=== PATIENT | male | born 1960 | race Caucasian/White ===

== ENCOUNTER 2020-09-24 08:19 | Outpatient (RCR) | payer SELFPAY | END 2020-09-24 23:59 | disposition home or self-care (01) | LOC: ANHAUDIO 08:19 | DX: Z46.1 Encounter for fitting and adjustment of hearing aid (principal) | CPT/HCPCS: 99199 ==

== ENCOUNTER 2021-06-01 15:00 | Outpatient (RCR) | payer SELFPAY | END 2021-06-01 23:59 | disposition home or self-care (01) | LOC: ANHAUDIO 15:00 | DX: Z46.1 Encounter for fitting and adjustment of hearing aid (principal) | CPT/HCPCS: 99199 ==

== ENCOUNTER 2021-08-16 08:31 | Outpatient (CLI) | payer OTHER, SELFPAY ==
--- NOTE | 2021-08-16 | EST_ITS ---
Patient Info Name: Edi Baldwin Age: 61 years : 1960 Gender: Male Ht: 65 in Wt: 185 lbs BSA: 1.99 m2 HR: 61 bpm BP: 126 / 90 mmHg Heart Rhythm: Sinus Rhythm Exam Date: 08/16/2021 10:16 AM Exam Location: [facility] Stress Patient Status: Outpatient Admit Date: 08/16/2021 Staff Ordering Physician: GloTreasure MD Attending Provider: GloTreasure MD Exercise Technologist: Gracie Kenney CT Exercise Physician: Yovanny You MD Exam Type: CA stress test treadmill Study Info Indications R07.9 - Chest pain, unspecified An exercise stress test was performed. Summary 1. Sinus bradycardia. 2. No abnormal ST/T wave changes with exercise. 3. None. 4. Clinically and electrocardiographically negative exercise stress test at 89% age predicted maximum heart rate. Protocol: [facility] ECG Details Stage: REST Duration (min): 1 min : 9 sec Speed (mph): 0.0 Grade (%): 0 HR (bpm): 59 SBP (mmHg): 126 DBP (mmHg): 90 METS: --- Stage: REST Duration (min): 16 min : 3 sec Speed (mph): 0.0 Grade (%): 0 HR (bpm): 66 SBP (mmHg): 126 DBP (mmHg): 90 METS: --- Stage: STAGE 1 Duration (min): 1 min : 0 sec Speed (mph): 1.7 Grade (%): 10 HR (bpm): 89 SBP (mmHg): 126 DBP (mmHg): 90 METS: --- Stage: STAGE 1 Duration (min): 2 min : 0 sec Speed (mph): 1.7 Grade (%): 10 HR (bpm): 95 SBP (mmHg): 126 DBP (mmHg): 90 METS: --- Stage: STAGE 1 Duration (min): 3 min : 0 sec Speed (mph): 1.7 Grade (%): 10 HR (bpm): 93 SBP (mmHg): 172 DBP (mmHg): 85 METS: --- Stage: STAGE 2 Duration (min): 1 min : 0 sec Speed (mph): 2.5 Grade (%): 12 HR (bpm): 102 SBP (mmHg): 172 DBP (mmHg): 85 METS: --- Stage: STAGE 2 Duration (min): 2 min : 0 sec Speed (mph): 2.5 Grade (%): 12 HR (bpm): 115 SBP (mmHg): 169 DBP (mmHg): 68 METS: --- Stage: STAGE 2 Duration (min): 3 min : 0 sec Speed (mph): 2.5 Grade (%): 12 HR (bpm): 113 SBP (mmHg): 169 DBP (mmHg): 68 METS: --- Stage: STAGE 3 Duration (min): 1 min : 0 sec Speed (mph): 3.4 Grade (%): 14 HR (bpm): 129 SBP (mmHg): 173 DBP (mmHg): 57 METS: --- Stage: STAGE 3 Duration (min): 2 min : 0 sec Speed (mph): 3.4 Grade (%): 14 HR (bpm): 136 SBP (mmHg): 173 DBP (mmHg): 57 METS: --- Stage: STAGE 3 Duration (min): 3 min : 0 sec Speed (mph): 3.4 Grade (%): 14 HR (bpm): 132 SBP (mmHg): 175 DBP (mmHg): 71 METS: --- Stage: STAGE 4 Duration (min): 0 min : 9 sec Speed (mph): 4.2 Grade (%): 16 HR (bpm): 135 SBP (mmHg): 175 DBP (mmHg): 71 METS: --- Stage: RECOVERY Duration (min): 0 min : 50 sec Speed (mph): 0.0 Grade (%): 0 HR (bpm): 101 SBP (mmHg):
--- NOTE | 2021-08-16 | ECHO_ITS ---
Patient Info Name: Edi Baldwin Age: 61 years : 1960 Gender: Male Ht: 65 in Wt: 185 lbs BSA: 1.99 m2 HR: 60 bpm BP: 143 / 91 mmHg Heart Rhythm: Sinus Rhythm Technical Quality: Fair Exam Date: 08/16/2021 9:19 AM Exam Location: [facility]monary Patient Status: Outpatient Admit Date: 08/16/2021 Staff Ordering Physician: Fara*Treasure Coulter MD [employer] Loans Officer: Mirian Oviedo RDCS Attending Provider: FaraTreasure MD Referring Physician: Fara HEARD; Exam Type: CA echo doppler color flow Study Info Indications Z82.49 - Family history of ischemic heart disease and other diseases of the circulatory system R07.89 - Other chest pain Complete two-dimensional, color flow and Doppler transthoracic echocardiogram is performed. Summary 1. Complete two-dimensional, color flow and Doppler transthoracic echocardiogram is performed. 2. Normal examination. 3. Trivial jet of tricuspid insufficiency is within the physiologic normal limits. Left Ventricle Left ventricular chamber dimension is normal. Left ventricular systolic function is normal, estimated at 65-70%. The left ventricular diastolic function is normal. Right Ventricle Right ventricular chamber dimension is normal. Left Atria Left atrial chamber dimension is normal. Right Atria Right atrial chamber dimension is normal. Aortic Valve The aortic valve is normal. Pulmonic Valve The pulmonic valve is normal. Mitral Valve The mitral valve has normal leaflets. Tricuspid Valve The tricuspid valve leaflets are normal. There is trace tricuspid valve regurgitation. Pericardium/Pleural The pericardium appears normal. Aorta The aortic root size at the sinus of Valsalva is normal. Left Ventricular Outflow Tract Name Value Normal LVOT 2D LVOT Diameter 2.0 cm LVOT Doppler LVOT Peak Gradient 4 mmHg LVOT Mean Gradient 2 mmHg LVOT VTI 21 cm LVOT VTI/AV VTI Ratio 0.8 LVOT Stroke Volume 66 ml LVOT CO 3.5 l/min LVOT CI 1.8 l/min/m2 Pulmonic Valve Name Value Normal RVOT Doppler RVOT Peak Gradient 1 mmHg PV Doppler PV Peak Gradient 4 mmHg Mitral Valve Name Value Normal MV Doppler MV Decel [place] 190 cm/s2 MV PHT 89 ms MV
--- NOTE | ~2021-08-16 | US_ITS ---
EXAMINATION: US scrotum doppler EXAM DATE: 08/16/2021 11:32 INDICATION: Left testicular mass. TECHNIQUE: Multiple grayscale and Doppler images of the testicles and scrotum were obtained bilateral ly. There is no prior study for comparison. FINDINGS: Right testicle measures 4.0 x 2.1 x 3.0 cm and is morphologically normal. Low resistance Doppler german w confirmed. Several epididymal cysts. There is no hydrocele or varicocele. Left testicle measures 4.1 x 2.2 x 2.9 cm and is morphologically normal. Low resistance Doppler flow confirmed. Several epididymal cysts. Serpiginous appearing left intrascrotal region adjacent to the testicle corresponding to the palpable abnormality, with echogenic material inside. This could be sma ll varicocele which has thrombosed-no color flow identified within. IMPRESSION: 1. Serpiginous left scrotal region corresponding to palpable abnormality, could be small thrombosed varicocele. 2. No testicular mass. Reviewed, dictated and finalized at location A. ON TEACHER IMPRESSION: 1. Serpiginous left scrotal region corresponding to palpable abnormality, coul d be small thrombosed varicocele. 2. No testicular mass.
== END 2021-08-16 08:32 | disposition home or self-care (01) ==
PROVIDERS: Visit Provider Internal Medicine
DX: R07.89 Other chest pain (principal); Z82.49 Family history of ischemic heart disease and other diseases of the circulatory system
CPT/HCPCS: 76870; 93017; 93306; 93976

== ENCOUNTER 2022-09-01 12:46 | Outpatient (CLI) | payer OTHER, SELFPAY ==
--- NOTE | ~2022-09-01 | DEXA_ITS ---
Bone Density Report Name: CLEOPATRA MANNING Age: 62 Sex: Male Ethnicity: White Date of : 1960 Indication: asthma or emphysema; Referring Provider: OSMAN ARREOLA Study: Bone densitometry was performed. Exam Date: September 01, 2022 Accession number: [id number] Bone Density: Region BMD T-score Z-score Classification AP Spine(L1-L4) 1.208 1.1 1.8 Normal Femoral Neck (Left) 0.609 -2.4 -1.3 Osteopenia Total Hip (Left) 0.742 -1.9 -1.4 Osteopenia Femoral Neck (Right) 0.672 -1.9 -0.9 Osteopenia Total Hip (Right) 0.851 -1.2 -0.7 Osteopenia Total Hip Mean 0.797 -1.6 -1.1 Osteopenia World Health Organization criteria for BMD impression classify patients as: Normal (T-score at or above -1.0), Osteopenia (T-score between -1.0 and -2.5), or Osteoporosis (T-score at or below -2.5). 10-year Fracture Risk(1): Major Osteoporotic Fracture 8.5% Hip Fracture 2.1% Reported Risk Factors: [place] (), Neck BMD=0.609, BMI=31.0 (1) FRAX(R) Version 3.08. Fracture probability calculated for an untreated patient. Fracture probability may be lower if the patient has received treatment. Clinical Information Provided by Patient: Has used the following medications: Vitamin D Has the following medical conditions: Asthma or Emphysema Patient maximum height was 65 Drinks caffeinated beverages Impression: The patient has low bone mass, based on the Left Femoral Neck T-score. The patient has an estimated ten-year risk of hip fracture of 2.1% and an estimated ten-year risk of major fracture of 8.5%, based on the WHO FRAX algorithm. Discussion: BONE DENSITY IS LOW AT ONE OR MORE SKELETAL SITES. This patient's lowest T-score is low at one or more skeletal sites. It meets the World Health Organization's (WHO) criteria for ?low bone mass? (T-score between -1.0 and -2.5). The patient's 10-year risk of fracture as calculated by FRAX is less than the threshold where pharmacological therapy is recommended by the National Osteoporosis Foundation (NOF). However, all treatment decisions require clinical judgment and consideration of individual patient factors, including patient preferences, comorbidities, previous drug use, risk factors not captured in the FRAX model (e.g., frailty, falls, vitamin D deficiency, increased bone turnover, interval significant decline in bone density) and possible under or overestimation of fracture risk by FRAX. The patient should follow a healthful lifestyle (good nutrition with adequate calcium and vitamin D, and appropriate weight-bearing exercise). Follow-Up: Consider repeating this study in 2 to 3 years to reassess this patient's status, or sooner if there is some new clinical indication. Reported by: [facility] on 09/01/2022 1:15:00 PM.
== END 2022-09-01 12:47 | disposition home or self-care (01) ==
PROVIDERS: Visit Provider Internal Medicine
DX: M85.89 Other specified disorders of bone density and structure, multiple sites (principal)
CPT/HCPCS: 77080

== ENCOUNTER 2023-05-18 14:29 | Outpatient (RCR) | payer MEDICARE, OTHER, SELFPAY | END 2023-05-18 23:59 | disposition home or self-care (01) | LOC: ANHAUDIO 14:29 | DX: Z46.1 Encounter for fitting and adjustment of hearing aid (principal) | CPT/HCPCS: V5014 ==

== ENCOUNTER 2023-09-26 11:25 | Emergency (ER) | payer MEDICARE, SELFPAY ==
--- NOTE | ~2023-09-26 | CT_ITS ---
EXAMINATION: CT lumbar spine wo con DATE: 09/26/2023 13:08 INDICATION: Back pain TECHNIQUE: Computed tomography (CT) of the lumbar spine was performed without intravenous contrast. A utomated exposure control and iterative reconstruction technique were employed. The dose-length produ ct was 661.83 mGy-cm. COMPARISON: None FINDINGS: There is 10 degree lumbar levocurvature. 10 degree thoracolumbar dextrocurvature. 3 mm retrolisthesis L5 on S1. Mild anterior wedging with 20% or less anterior vertebral body height loss at T12, L1 and L5 which appears chronic. No recent fractures. Severe left-sided predominant disc height loss at L1-L 2 and right-sided predominant disc height loss with sclerotic Modic type III endplate changes at L2-L 3. Mild disc height loss at L5-S1 and with vacuum phenomena at L4-L5. Vertebral soft tissues are unre markable. The following disc levels are specifically discussed: T11-T12: The disc does not extend beyond the endplate margin. Small right posterolateral T11 inferior endplate osteophyte at the level of the neural foramen. There is moderate right and severe left face t joint osteoarthritis. There is moderate right and mild left neural foraminal stenosis. There is min imal central canal stenosis. T12-L1: Disc is mildly bulging. There is mild right and severe left facet joint osteoarthritis. There is moderate bilateral neural foraminal stenosis. There is mild central canal stenosis. L1-L2: Disc is bulging with small left-sided predominant endplate osteophytes. There is moderate left and mild to moderate right facet joint osteoarthritis. There is moderate to severe bilateral neural foraminal stenosis. There is mild central canal stenosis. L2-L3: Posterior disc osteophyte complex. There is mild left and moderate to severe right facet joint osteoarthritis. There is moderate left and moderate to severe right neural foraminal stenosis. There is moderate central canal stenosis. L3-L4: Disc is bulging. There is mild hypertrophy of the ligamentum flavum. There is severe bilateral facet joint osteoarthritis. There is moderate bilateral neural foraminal stenosis. There is moderate to severe central canal stenosis. L4-L5: Disc is bulging. There is hypertrophy of the ligamentum flavum. There is severe bilateral face t joint osteoarthritis. There is moderate left and moderate to severe right neural foraminal stenosis . There is moderate to severe central canal stenosis. L5-S1: Disc is bulging. There is right and moderate to severe left facet joint osteoarthritis. There is moderate left and moderate to severe right neural foraminal stenosis. There is minimal central can al stenosis. IMPRESSION: 1. Moderate S-shaped curvature of the lumbar and lower thoracic spine with severe spondylosis. Reviewed, dictated and finalized at location A. NCIAL PLANNING ASSISTANT IMPRESSION: 1. Moderate S-shaped curvature of the lumbar and lower thoracic spine with reddy re spondylosis.
[2023-09-26 11:33] VITALS: BP 145/101; PULSE 72; RESP 16; TEMP 36.8; O2SAT 98
--- NOTE | 2023-09-26 11:37 | PC.NURSE ---
MSE started at this time in triage
--- NOTE | 2023-09-26 11:43 | ECG_ITS ---
Measurements Intervals [place] Rate: 73 P: 57 NC: 200 QRS: 21 QRSD: 92 T: 30 QT: 393 QTc: 433 Interpretive Statements SINUS RHYTHM COMPARED TO ECG 09/24/2018 19:19:08 NO SIGNIFICANT CHANGES Electronically Signed On 09-26-2023 15:46:26 FOOD ORDER EXPEDITER by Elissa Horner M.D.
--- NOTE | 2023-09-26 11:44 | ED.BACK ---
HPI - Back Pain/Injury General Chief Complaint: Back Pain/Injury <MARCELLO Jorge Last Filed: 09/26/23 19:22> Stated Complaint: lower back/hip pain <MARCELLO Jorge Last Filed: 09/26/23 19:22> Time Seen by Provider: 09/26/23 12:30 <MARCELLO Jorge Last Filed: 09/26/23 19:22> Focused HPI: This is a 63-year-old male that presents to the emergency department for left-sided flank pain. Ongoing over the last couple of days. Worsening over the last couple of hours. The pain is constant. Associated with nausea and vomiting. Denies chest pain, shortness of breath, dysuria, or hematuria. Patient recently had a left knee replacement at another facility about 1 week ago. GENERAL: Uncomfortable, well-nourished, actively vomiting HEAD: Normocephalic, atraumatic. CHEST: Clear to auscultation. No respiratory distress. HEART: Regular rate and rhythm. GASTROINTESTINAL: Soft, nondistended NEURO: Alert and oriented x3. Patient screened in triage and initial orders placed. Additional care and disposition to be based upon diagnostic testing and treatment. <MARCELLO Jorge Last Filed: 09/26/23 19:22> Source: patient <MARCELLO Jorge Last Filed: 09/26/23 19:22> Mode of arrival: wheelchair <MARCELLO Jorge Last Filed: 09/26/23 19:22> Limitations: no limitations <MARCELLO Jorge Last Filed: 09/26/23 19:22> Related Data Home Medications: Home Medications Medication Instructions Recorded Confirmed multivitamin 1 tablet PO DAILY 12/30/21 12/22/22 cholecalciferol (vitamin D3) 10 10 mcg PO DAILY 12/22/22 12/22/22 mcg (400 unit) capsule <MARCELLO Jorge Last Filed: 09/26/23 19:22> Allergies/Adverse Reactions: Allergies Allergy/AdvReac Type Severity Reaction Status Date / Time No Known Allergies Allergy Unknown Unverified 12/22/22 09:16 <Debbi Dumont PA-C - Last Filed: 09/26/23 19:22> Review of Systems Review of Systems: CONSTITUTIONAL: Denies fever, CARDIOVASCULAR: Denies chest pain RESPIRATORY: Denies dyspnea. GASTROINTESTINAL: Reports nausea, vomiting GENITOURINARY: Denies dysuria or hematuria. <Debbi Dumont PA-C - Last Filed: 09/26/23 19:22> All systems reviewed & are unremarkable except as noted in HPI and below <Debbi Dumont PA-C - Last Filed: 09/26/23 19:22> PMFSH Past Medical History Medical History: Medical History Arthritis Asthma Rhinitis SOB (shortness of breath) <Debbi Dumont PA-C - Last Filed: 09/26/23 19:22> Surgical History Surgical History: Surgical History History of arthroscopy of knee <Debbi Dumont PA-C - Last Filed: 09/26/23 19:22> Family History Family History: Family History Mother Family history of obesity Asthma Family history of diabetes mellitus in first degree relative Diabetes mellitus Father Hypertension Family history of condition Family history of diabetes mellitus in first degree relative Family history of coronary artery disease Diabetes mellitus Sibling Family history of diabetes mellitus in first degree relative Diabetes mellitus Grandparent Diabetes mellitus <Debbi Dumont PA-C - Last Filed: 09/26/23 19:22> Social History Social History: Social History Smoking status: Never smoker Second hand tobacco smoke exposure: No Alcohol intake: current Substance use: never Substance use type: does not use Living arrangements: with family Occupation/Education: retired Gender identity (if verbalized by the patient): Male <MARCELLO Jorge Last Filed: 09/26/23 19:22> Exam Narrative: GENERAL: Uncomfortable, well-nourished, vomiting HEAD: Normocephalic, atrauma
[2023-09-26 12:01] LABS: Basophils Absolute Auto 0.1 K/mm3 (0.0-0.1); Basophils Percent Auto 0.7 % (0.2-1.2); Eosinophils Absolute Auto 0.5 K/mm3 (0-0.3); Eosinophils Percent Auto 4.2 % (0-4.4); Hematocrit 39.5 % (42.0-52.0); Hemoglobin 13.1 g/dL (14.0-18.0); Immature Granulocyte Absolute 0.04 K/mm3 (0.00-0.031); Immature Granulocyte Percent A 0.4 % (0-0.5); Lymphocytes Absolute Auto 0.98 K/mm3 (0.9-3.2); Lymphocytes Percent Auto 8.9 % (18.3-44.2); Mean Corpuscular HGB Conc 33.2 g/dl (32-36); Mean Corpuscular Hemoglobin 28.9 pg (26-34); Mean Platelet Volume 9.8 fl (7.4-10.4); Monocytes Absolute Auto 0.9 K/mm3 (0.1-0.6); Monocytes Percent Auto 7.9 % (2.6-8.5); Neutrophils Absolute Auto 8.6 K/mm3 (1.3-6.7); Neutrophils Percent Auto 77.9 % (45.5-73.1); Platelet Count Result 281 k/mm3 (150-375); Red Blood Count 4.54 M/mm3 (4.6-6.20); Red Cell Distribution Width 12.5 % (11.5-14.5); White Blood Count 11.1 K/mm3 (4.5-10.0)
[2023-09-26 12:12] LABS: Prothrombin Time 13.1 Seconds (11.1-14.7)
[2023-09-26 12:13] LABS: Partial Thromboplastin Time 28.8 SECONDS (22.3-36.8)
[2023-09-26 12:14] LABS: Alanine Aminotransferase 31 U/L (6-50); Albumin Level 4.3 g/dL (3.5-5.1); Alkaline Phosphatase 52 U/L (38-126); Anion Gap 5 mmol/L (8-16); Aspartate Amino Transferase 31 U/L (17-59); Bilirubin,Total 0.9 mg/dL (0.2-1.3); Blood Urea Nitrogen 14 mg/dL (9-20); Calcium 9.4 mg/dL (8.4-10.2); Carbon Dioxide 27 mmol/L (22-30); Chloride 101 mmol/L (98-107); Estimated Glomerular Filt Rate > 60; Glucose 123 mg/dL (65-110); Potassium 4.2 mmol/L (3.4-5.0); Sodium 133 mmol/L (137-145)
[2023-09-26] MEDS: ONDANSETRON INJ 4 MG/2 ML VIAL IV PUSH (12:53)
[2023-09-26] MEDS: MORPHINE SULFATE (*CRX) 4 MG/ML INJ IV PUSH (12:53)
[2023-09-26 12:57] LABS: Appearance Urine Clear (Clear); Bilirubin Urine Negative (Negative); Blood Urine Negative (Negative); Color Urine Dark Yellow (Yellow); Glucose Urine UA Negative (Negative); Ketones Urine 2+ mg/dL (Negative); Leukocyte Esterase Ur Negative LEU/UL (Negative); Nitrate Urine Negative (Negative); Protein Urine Negative (Negative); Specific Grav Ur 1.026 (1.001-1.035); Urobilinogen Urine 0.2 mg/dL (<2.0)
[2023-09-26 13:00] LABS: Add Urine Microscopic? NO
--- NOTE | 2023-09-26 13:04 | PC.NURSE ---
Pt denies any urinary symptoms, pt unable to get comfortable, pain med given as ordered.
--- NOTE | 2023-09-26 14:50 | ED.BACK ---
HPI - Back Pain/Injury General Chief Complaint: Back Pain/Injury Stated Complaint: lower back/hip pain Time Seen by Provider: 09/26/23 12:30 Source: patient Limitations: no limitations History of Present Illness HPI Narrative: 63-year-old with a history of hypertension, hyperlipidemia status post total knee done on September 19 here with a complaint of right-sided back pain which started 3 days ago. He denies any trauma. No history of fever or chills. Patient states that if he moves in certain directions gets severe pain. MD elicited complaint: back pain Pertinent past history: arthritis Onset (ago): day(s) (3) Timing: constant Severity: moderate Location: lumbar spine Radiation: none Exacerbating factors: none Relieving factors: immobilization Associated symptoms: denies other symptoms Related Data Home Medications Medication Instructions Recorded Confirmed multivitamin 1 tablet PO DAILY 12/30/21 12/22/22 cholecalciferol (vitamin D3) 10 10 mcg PO DAILY 12/22/22 12/22/22 mcg (400 unit) capsule Allergies Allergy/AdvReac Type Severity Reaction Status Date / Time No Known Allergies Allergy Unknown Unverified 12/22/22 09:16 Review of Systems Review of Systems: All systems reviewed & are unremarkable except as noted in HPI and below Constitutional: Constitutional: Reports no additional constitutional complaints Eyes: Eyes: Reports no additional eye complaints ENT: Reports system reviewed and no additional complaints, except as documented Cardiovascular: Cardiovascular: Reports no additional cardiovascular complaints Respiratory: Respiratory: Reports no additional respiratory complaints Gastrointestinal: Gastrointestinal: Reports no additional gastrointestinal complaints Musculoskeletal: Musculoskeletal: Reports as per HPI Neurologic: Reports system reviewed and no additional complaints, except as documented [facility] Past Medical History Medical History Arthritis Asthma Rhinitis SOB (shortness of breath) Surgical History Surgical History History of arthroscopy of knee Family History Family History Mother Family history of obesity Asthma Family history of diabetes mellitus in first degree relative Diabetes mellitus Father Hypertension Family history of condition Family history of diabetes mellitus in first degree relative Family history of coronary artery disease Diabetes mellitus Sibling Family history of diabetes mellitus in first degree relative Diabetes mellitus Grandparent Diabetes mellitus Social History Social History Smoking status: Never smoker Second hand tobacco smoke exposure: No Alcohol intake: current Substance use: never Substance use type: does not use Living arrangements: with family Occupation/Education: retired Gender identity (if verbalized by the patient): Male Exam Narrative: GENERAL: Well-appearing, well-nourished, and in no acute distress. HEAD: Normocephalic, atraumatic. EYES: PERRLA and EOMI. ENT: Nares clear, no rhinorrhea or epistaxis. Mucous membranes moist. NECK: Supple. CHEST: Clear to auscultation. No respiratory distress. HEART: Regular rate and rhythm. No murmur heard. Normal peripheral pulses. ABDOMEN: Soft, nontender, nondistended, normal active bowel sounds. Back No rah ,tender in the flank area EXTREMITIES: Normal range of motion. No edema. right knee surgical dressing SKIN: Warm, dry, no rash. NEURO: No focal deficits. Alert and oriented x3. PSYCH: Normal mood and affect. Course Course Emergency Course: Patient comfortably resting on the bed. His pain has much improved after IV morphine and Zofran. I did discuss all lab work, CT findings with the patient and his Discussed with Dr. Wilkes
[2023-09-26 15:28] VITALS: BP 112/69; PULSE 72; RESP 16; TEMP 36.7; O2SAT 95
== END 2023-09-26 15:31 | disposition home or self-care (01) ==
PROVIDERS: Physician Assistant; Emergency Provider Family Medicine
DX: M54.50 Low back pain, unspecified (principal); Z96.652 Presence of left artificial knee joint
CPT/HCPCS: 36415; 72131; 80053; 81003; 83605; 85025; 85610; 85730; 93005; 96374; 96375; 99284; J2270; J2405

== ENCOUNTER 2023-10-27 09:00 | Outpatient (RCR) | payer MEDICARE, SELFPAY ==
--- NOTE | 2023-09-26 10:03 | OPREHPOC ---
Outpatient Therapy Plan of Care This is a Multidisciplinary Plan of Care that may contain components documented by all disciplines (PT, OT, and ST.) PT Problem 1 PT Problem #1 Knowledge Deficit PT Goal 1 Goal 1* indep with HEP 2* correct use/gait pattern with assistive device PT Problem 2 PT Problem #2 Pain PT Goal 1 Goal 1* decrease pain rating to 3/10 at worst 2* self assessment LE functional score of 50% limitation in activity PT Problem 3 PT Problem #3 Impaired Range of Motion PT Goal 1 Goal increase L knee active ROM to improve transfer and ability on stairs sittin* extension 0' 2* flexion 110' PT Problem 4 PT Problem #4 Impaired Strength PT Goal 1 Goal increase strength of L LE, to improve mobility, gait and transfer skills 1* supine/sit without use of R LE to move L LE 2* sit/stand without use of UE's from 18 seat x 5 reps 3* pt perform 20 reps of mat strengthening exercises PT Problem 5 PT Problem #5 Impaired Functional Mobil PT Goal 1 Goal 1* pt ambulate with cane and good gait pattern 2* pt up/down 12 steps with one hand railing, modified indep 3* pt report walking in community 4* pt report going to his basement without any problems on the stairs
--- NOTE | 2023-09-26 10:03 | PTOPEVAL1 ---
Assessment and note entered by Alanis Santos, PT Evaluation Information Assessment Status Evaluation Diagnosis s/p L TKR Onset 09-19-23 Subjective Information since surgery, resting at home, doing exercises-- QS, glut set, hip abduction, TKE, heel slides- 15 reps; using ice and TENS unit for pain and on quad stim; using walker Activity: 2 entry steps into home with railing; have basement- do not have to go down, but has work shop down there; retired; prior to surgery- active, yard work, no limitations in activity level. home with - she is supportive Reported Pain Level Pain Score Self Report Additional Pain Score Comments pain range in past few days: 3-5/10, tight, stiff using elevation and ice at home, stim Assessment PT Clinical Summary Ronn is s/p L TKR. He has had his R knee replaced also, so does have good knowledge of what to expect with therapy. Toña present and supportive to pt. Prior to surgery, he was active and did not have any limitations in activity. With the evaluation: he has decreased ROM of knee (-5') to 75' passive, with decreased quad recruitment--cannot perform SLR and uses R UE to move L LE on/off mat; use of walker for 2 minute walking test distance of 220'; he is motivated and is supportive. Skilled PT services are indicated for modalities to decrease pain and edema over L knee and stim to facilitate quad; therapeutic exercises to increase L knee ROM and strength; gait and balance retraining, with education for HEP progression. Plan of Care Interventions Electrical Stimulation,Gait Training,Hot Pack/Cold Pack,Intermittent Compression,Manual Therapy, Neuro Re-education,Patient/Caregiver Education, Therapeutic Activities,Therapeutic Exercise,Self- Care/Home Management,Other Other Interventions taping PT Services Indicated Yes Treatment Frequency and 2x/wk for 10 total visits Duration
--- NOTE | 2023-10-27 09:55 | PTOPDC ---
Assessment and note entered by Gonzalo Spears, PT, DPT Evaluation Information Assessment Status Discharge Diagnosis s/p L TKR Onset 09-19-23 Subjective Information Pt states overall he is doing great. He can do whatever he wants to do. He states his knee will get a little sore and swollen after activity but this goes away with rest and is very manageable. Reported Pain Level Pain Score 1: Self Report Assessment PT Clinical Summary Edi completed 10 visits of skilled therapy to treat the deficits related to a L TKA on 09/19/23. Today he demonstrates equal hip and knee strength yudi, active L knee ROM from 0-128 deg. He ambulates without an AD and with minimal deviations. He has met all of his therapy goals and no longer requires skilled services. He will be discharged at this time.
== END 2023-10-27 11:36 | disposition home or self-care (01) ==
LOC: ANHGOSHPT 09:00
PROVIDERS: Visit Provider Orthopaedic Surgery
DX: Z47.1 Aftercare following joint replacement surgery (principal); Z96.652 Presence of left artificial knee joint
CPT/HCPCS: 97016; 97110; 97112; 97161; 97530

== ENCOUNTER 2024-02-16 10:50 | Outpatient (CLI) | payer MEDICARE, OTHER, SELFPAY | END 2024-02-16 10:51 | disposition home or self-care (01) | LOC: ANHAUDIO 10:50 | PROVIDERS: Visit Provider Internal Medicine | DX: H90.3 Sensorineural hearing loss, bilateral (principal) | CPT/HCPCS: 92557; 92567; V5261 ==

== ENCOUNTER 2024-03-28 08:30 | Outpatient (RCR) | payer MEDICARE, OTHER, SELFPAY | END 2024-03-28 23:59 | disposition home or self-care (01) | LOC: ANHAUDIO 08:30 | PROVIDERS: Visit Provider Internal Medicine | DX: Z46.1 Encounter for fitting and adjustment of hearing aid (principal) | CPT/HCPCS: 99199; V5261 ==

== ENCOUNTER 2025-06-17 01:00 | Day surgery (SDC) | payer MEDICARE, OTHER, SELFPAY ==
[2025-06-06 09:43] VITALS: BMI 29.1
--- OUTSIDE RECORDS SUMMARY | 2025-06-17 01:02 | XMS_ITS | Clinical Summary ---
Author Organization [facility] Address [address] [place] [address] Care Team Providers Care Solar Sales Rep Name Role Phone Treasure Cody MD Primary Care Provider [phone] Michaela Burt Unavailable [phone] Allergies Active Allergy Reactions Criticality Noted Date Comments Hydrocodone Nausea & Vomiting Low 10/02/2023 Medications atorvastatin (LIPITOR) 10 mg tablet Take 1 tablet (10 mg total) by mouth daily 4 8 Active amLODIPine (NORVASC) 5 mg tablet Take 1 tablet (5 mg total) by mouth daily Active cetirizine (ZyrTEC) 10 mg tablet Take 1 tablet (10 mg total) by mouth daily as needed for allergies Active fluticasone propion-salmeter oL (ADVAIR DISKUS) 100-50 mcg/dose diskus inhaler Inhale 1 puff daily Rinse mouth with water after use. Do not swallow. Active diphenhydrAMINE (BENADRYL) 50 mg capsule Take 1 capsule (50 mg total) by mouth nightly as needed for sleep Active therapeutic multivitamin (THERA) tabletIndication s:Vitamin Deficiency Prevention Take 1 tablet by mouth daily Active cholecalciferol (VITAMIN D-3) 2000 unit tablet Take 1 tablet (2,000 Units total) by mouth daily Active calcium carbonate-vitami n D3 1,250 mg (500 mg elemental)-600 unit tablet Take 2 tablets by mouth daily Active albuterol HFA (PROVENTIL HFA,VENTOLIN HFA,PROAIR HFA) 90 mcg/actuation inhaler Inhale 2 puffs every 6 (six) hours as needed for wheezing Active ascorbic acid (VITAMIN C) 500 mg tablet,chewable Take 1 tablet/chew tab (500 mg total) by mouth 2 (two) times a day 60 tablet/chew tab 4 Active aspirin 81 mg enteric coated tabletIndication s:prevention of thrombosis Take 1 tablet (81 mg total) by mouth 2 (two) times a day for 14 days 28 tablet 4 Active cholecalciferol (VITAMIN D-3) 2000 unit capsule Take 1 capsule (2,000 Units total) by mouth daily 30 capsule 4 Active ondansetron (ZOFRAN) 4 mg tabletIndication s:Prevention of Post-Operative Nausea and Vomiting Take 1 tablet (4 mg total) by mouth every 6 (six) hours as needed for nausea or vomiting 30 tablet 1 4 Active Additional Information Patient not taking.Reported on 11/14/2023 senna-docusate (PERICOLACE) 8.6-50 mg 1-2 times daily as needed for constipation 60 tablet 1 4 Active Additional Information Patient not taking.Reported on 11/14/2023 cyclobenzaprine (FLEXERIL) 5 mg tablet Take 1 tablet (5 mg total) by mouth daily as needed for muscle spasms 30 tablet 2 4 Active Active Problems Problem Noted Date Diagnosed Date Arthritis of knee 09/19/2023 Primary osteoarthritis of left knee 09/06/2023 Primary osteoarthritis of right knee 05/29/2018 Overview (05/29/2018): Added automatically from request for surgery [id number] Arthralgia of hip 12/02/2014 Resolved Problems Problem Noted Date Diagnosed Date Resolved Date Myalgia, other site 11/30/2023 11/30/19 24 Encounters Date Type Department Care Team Description 03/19/2025 7:49 AM CDT - 03/19/2025 11:59 PM CDT Hospital Encounter [facility] [address] [place] [address] A, [address] [address] Teetee Estes NP Myalgia (Primary Dx) Discharge Disposition: Discharge to home or self care from Last 3 Months Surgical History Surgery Date Site/Laterality Comments KNEE ARTHROSCOPY JOINT REPLACEMENT Right knee VASECTOMY Medical History Medical History Date Comments Hypercholesteremia Asthma Hypertension PONV (postoperative nausea and vomiting) Sleep apnea Myalgia, other site 11/30/2023 Family History Medical History Relation Name Comments Arthritis Other Diabetes Other Hypertension Other Relation Name Status Comments Other Social History Tobacco Use Types Packs/Day Years Used Date Smoking Tobacco: Never Smokeless Tobacco: Never Tobacco Cessation:Counseling Given: Not Answered Alcohol Use Standard Drinks/Week Comments Yes 0 (1 standard drink = 0.6 oz pur e alcohol) AUDIT-C Answer Date Recorded Q1: How often do you have a drink containing alc ohol? 2-3 times a week 09/08/2023 Q2: How many drinks containi ng alcohol do you have on a typical day when you are drinking? 1 or 2 09/08/2023 Q3: How often do you have si x or more drinks on one occasion? Never 09/08/2023 PHQ-2 Answer Date Recorded PHQ-2 Total Score (If total score is 3 or more points, staff should administer the PHQ-9) 2 10/18/2023 PHQ-9 Answer Date Recorded PHQ-9 Total Score 9 10/18/2023 Personal Safety Answer Date Recorded Have you ever been in or are you currently in a harmful physical or emotional relationship or is someone making you feel afraid or unsafe? 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 Gender Identity Not on file Sexual Orientation Not on file Last Filed Vital Signs Vital Sign Reading Time Taken Comments Blood Pressure 135/77 03/19/2025 8:00 AM CDT Pulse 65 03/19/2025 8:00 AM CDT Temperature 36.6 C (97.8 F) 02/26/2025 7:19 AM CDT Respiratory Rate 16 03/19/2025 8:00 AM CDT Oxygen Saturation 98% 03/19/2025 8:00 AM CDT Inhaled Oxygen Concentration - - Weight 86.2 kg (190 lb) 11/14/2023 1:35 PM CDT Height 163.8 cm (5' 4.5) 11/14/2023 1:35 PM CDT Body Mass Index 32.11 11/14/2023 1:35 PM CDT Plan of Treatment Health Maintenance Due Date Last Done Comments Colon Cancer Screening-Colonoscopy 1960 Hepatitis C Screening 1960 Prostate Cancer Screening-PSA 1960 DTaP/Tdap/Td Vaccine (1 - Tdap) 1969 Hepatitis B Screening 1976 Pneumococcal vaccine 65+ (1 of 2 - PCV) 1977 Zoster Vaccine (1 of 2) 2008 Well Visit 65+ 2023 Fall Risk Assessment 09/06/2024 09/06/2023 Depression Screening 10/17/2024 10/18/2023, 10/18/19 24 Influenza Vaccine (#1) 2025 Medical Devices Implanted Type Area Laundry Manager Device Identifier Shelf Expiration Date Model / Serial / Lot Surgical Simplex P Radiopaque Bone Cement [id number] Implanted:Qty: 1 on 06/14/2018 by Puneet Wilkes MD at [facility] Right: Knee [employer] [id number] 08/06/2018 [id number] / / [id number] [employer] [id number] Attune Cementless Rotate Platform Knee 7 Baseplate Tibial - [id number] Implanted:Qty: 1 on 06/14/2018 by Puneet Wilkes MD at [facility] Right: Knee [employer] 02/03/2027 [id number] / / [id number] [employer] [id number] Attune Cruciate Retain Cementless Knee Right 7 Component Femoral - [id number] Implanted:Qty: 1 on 06/14/2018 by Puneet Wilkes MD at [facility] Right: Knee [employer] 01/04/2027 [id number] / / [id number] [employer] [id number] Attune 5mm Cruciate Retaining Rotate Platform Knee 7 Insert - [id number] Implanted:Qty: 1 on 06/14/2018 by Puneet Wilkes MD at [facility] Right: Knee [employer] 12/04/2022 [id number] / / [id number] [employer] [id number] Attune 38mm Cemented Medialize Knee Dome Patellar Aox Sterile - [id number] Implanted:Qty: 1 on 06/14/2018 by Puneet Wilkes MD at [facility] Right: Knee [employer] 12/04/2022 [id number] / / [id number] [employer] Attune Cruciate Retain Cementless Knee Left 7 Component Femoral [id number] - [id number] Implanted:Qty: 1 on 09/19/2023 by Puneet Wilkes MD at [facility] Left: Knee [employer] 04/06/2033 [id number] / / [id number] [employer] Attune Fb Tib Base Sz 7 Por [id number] - [id number] Implanted:Qty: 1 on 09/19/2023 by Puneet Wilkes MD at [facility] Left: Knee [employer] 08/06/2033 [id number] / / [id number] [employer] Insert Tibial Knee Fixed Lm Posterior Stabilized Attune 6mm Size 7 Polyethylene [id number] - [id number] Implanted:Qty: 1 on 09/19/2023 by Puneet Wilkes MD at [facility] Left: Knee [employer] 04/06/2031 [id number] / / [id number] [facility] MEDIC[facility] Advance Directives For more information, please contact: [phone] * Full Code (Latest Code Status on File) Date Activated Date Inactivated Comments 09/19/2023 10:37 AM 09/19/2023 6:59 PM * Full Code Date Activated Date Inactivated Comments 06/14/2018 3:55 PM 06/16/2018 3:42 AM Care Teams Solar Sales Rep Relationship Specialty Start Date End Date Treasure Cody MD PCP - General Internal Medicine 07/05/23 Michaela Burt PA [address] [place] [address] [place] [address] [place] [id number] Physician Heavy Equipment Operator Orthopedic Surgery 09/19/23
[2025-06-17 13:24] VITALS: BP 116/82; PULSE 83; RESP 20; O2SAT 93
[2025-06-17] MEDS: LACTATED RINGERS 1,000 ML 150 ML IV CONT (13:27)
--- NOTE | 2025-06-17 13:59 | P.PNAN_ITS ---
Anes - Initial Pre Proc Eval Procedure: Operation Date: 06/17/25 14:00 Proposed Procedures p Screening Colonoscopy - Farhat Cuba DO Date/Time: 06/17/25 13:59 Surgeon: Farhat Cuba DO Pre Op Diagnosis: Neoplasm screening Patient Data Age: 65 Gender: M Height: 1.73 m Weight: 89.9 kg Allergies Allergy/AdvReac Type Severity Reaction Status Date / Time hydrocodone AdvReac Intermediate Back Pain Verified 06/06/25 09:41 Home Medications ?Medication ?Instructions ?Recorded ?Confirmed ?Type atorvastatin 10 mg tablet 10 mg PO DAILY #90 tabs 04/04/2606/17/25 Rx amlodipine 5 mg tablet 5 mg PO DAILY #90 tabs 05/1306/17/25 Rx albuterol sulfate 90 mcg/actuation 1 - 2 puff inhalati on Q4-6H PRN 12/30/21 06/17/25 Rx aerosol inhaler (Ventolin HFA) shortness of breath or wheezing #8.5 grams multivitamin 1 tablet PO DAILY 12/30/21 1 08/17/24 History cholecalciferol (vitamin D3) 10 10 mcg PO DAILY 06/17/25 History mcg (400 unit) capsule acetaminophen 500 mg tablet 500 mg PO Q6H PRN fever or pain 02/25/25 06/06/25 History calcium 500 mg (as 1 tablet PO DAILY 02/25/25 1 08/17/24 History carbonate)-vitamin D3 10 mcg (400 unit) tablet (Calcium 500 With D) fluticasone 100 mcg-salmeterol 50 See Rx Instructions .Route 04/14/25 06/17/25 Rx mcg/dose blistr powdr for .COMPLEX #60 ea inhalation (Wixela Inhub) Patient hx anesthesia problems: none Family hx anesthesia problems: none Results Review: All pre-operative results and documents have been reviewed as part of the pre- operative evaluation. [facility] Past Medical History Medical History (Updated 06/17/25 @ 14:00 by Yohan Hamilton DO) KAMI (obstructive sleep apnea) Hypertension Hyperlipemia Arthritis SOB (shortness of breath) Rhinitis Asthma Surgical History Surgical History (Updated 02/25/25 @ 08:08 by Charley Damon) History of left knee replacement History of arthroscopy of knee Family History Family History (Updated 02/25/25 @ 08:09 by Charley Damon) Mother Family history of diabetes mellitus in first degree relative Diabetes mellitus Father Hypertension Diabetes mellitus Sibling Diabetes mellitus Hypertension Cerebrovascular accident Grandparent Diabetes mellitus Social History Social History (Updated 02/25/25 @ 09:03 by Charley Damon) Smoking status: Never smoker Second hand tobacco smoke exposure: No Alcohol intake: current Drinks per week: 4 Alcohol use details: beer socially- rare Substance use: never Substance use type: does not use Living arrangements: with family Occupation/Education: retired Gender identity (if verbalized by the patient): Male Spiritual care concerns: No Anes - Eval Final PreProcedure Day of Procedure 06/17/25 13:59 Patient weight: obese Heart: regular rate and rhythm Lungs: clear to auscultation Airway: Mallampati scale class II Neurological: alert and oriented Last oral intake: >/= 8 hours ASA classification: III Emergent: no Anesthetic plan: proceed Anesthesia type and monitoring: general GIVS and standard monitoring Results Review: All pre-operative results and documents have been reviewed as part of the pre- operative evaluation. Informed Consent: The patient's anesthetic plan and its attendant risks and benefits were discussed with the patient/family/POA. Questions were solicited and answers provided to the satisfaction of the patient/family/POA.
--- NOTE | 2025-06-17 14:16 | PM.IMHP ---
H&P: HPI History of Present Illness Date/Time: 06/17/25 14:16 Chief Complaint: Screening for colorectal cancer Narrative: This is a 65-year-old man who presents for colonoscopy. His last colonoscopy was 17 years ago and was normal. He denies family history of colon cancer. He denies hematochezia or melena. Review of Systems Review of Systems: All systems reviewed & are unremarkable except as noted in HPI and below Constitutional: Constitutional: Denies chills, Denies fever(s), Denies headache(s) and Denies weight loss Eyes: Eyes: Denies change in vision ENT: Denies dizziness, Denies headache(s), Denies neck mass and Denies throat swelling Cardiovascular: Cardiovascular: Denies chest pain, Denies lightheadedness and Denies dyspnea Respiratory: Respiratory: Denies cough, Denies dyspnea and Denies wheezing Gastrointestinal: Gastrointestinal: Denies abdominal pain, Denies change in bowel habits, Denies nausea and Denies vomiting Genitourinary: Genitourinary: Denies hematuria and Denies dysuria Musculoskeletal: Musculoskeletal: Reports as per HPI Integumentary/Breasts: Skin/Breast: Reports as per HPI Neurologic: Denies dizziness and Denies headache(s) Allergic/Immunologic: Allergic/Immunologic: Denies throat swelling and Denies wheezing [facility] Past Medical History Medical History (Updated 06/17/25 @ 14:00 by Yohan Hamilton DO) KAMI (obstructive sleep apnea) Hypertension Hyperlipemia Arthritis SOB (shortness of breath) Rhinitis Asthma Surgical History Surgical History (Updated 02/25/25 @ 08:08 by Charley Damon) History of left knee replacement History of arthroscopy of knee Family History Family History (Updated 02/25/25 @ 08:09 by Charley Damon) Mother Family history of diabetes mellitus in first degree relative Diabetes mellitus Father Hypertension Diabetes mellitus Sibling Diabetes mellitus Hypertension Cerebrovascular accident Grandparent Diabetes mellitus Social History Social History (Updated 02/25/25 @ 09:03 by Charley Damon) Smoking status: Never smoker Second hand tobacco smoke exposure: No Alcohol intake: current Drinks per week: 4 Alcohol use details: beer socially- rare Substance use: never Substance use type: does not use Living arrangements: with family Occupation/Education: retired Gender identity (if verbalized by the patient): Male Spiritual care concerns: No Meds Home Medications and Allergies Home Medications ?Medication ?Instructions ?Recorded ?Confirmed ?Type atorvastatin 10 mg tablet 10 mg PO DAILY #90 tabs 11/14/19 06/17/25 Rx amlodipine 5 mg tablet 5 mg PO DAILY #90 tabs 05/13/20 06/17/25 Rx albuterol sulfate 90 mcg/actuation 1 - 2 puff inhalation Q4-6H PRN 12/30/21 06/17/25 Rx aerosol inhaler (Ventolin HFA) shortness of breath or wheezing #8.5 grams multivitamin 1 tablet PO DAILY 12/30/21 06/17/25 History cholecalciferol (vitamin D3) 10 10 mcg PO DAILY 12/22/22 06/17/25 History mcg (400 unit) capsule acetaminophen 500 mg tablet 500 mg PO Q6H PRN fever or pain 02/25/25 06/06/25 History calcium 500 mg (as 1 tablet PO DAILY 02/25/25 06/17/25 History carbonate)-vitamin D3 10 mcg (400 unit) tablet (Calcium 500 With D) fluticasone 100 mcg-salmeterol 50 See Rx Instructions .Route 04/14/25 06/17/25 Rx mcg/dose blistr powdr for .COMPLEX #60 ea inhalation (Wixela Inhub) Allergies Allergy/AdvReac Type Severity Reaction Status Date / Time hydrocodone AdvReac Intermediate Back Pain Verified 06/06/25 09:41 Exam Const: General: no acute distress and alert Orientation/consciousness: patient oriented x3 HENMT: Head: normocephalic and atraumatic Ears: hearing grossly normal bilaterally Face/Nose/Sinus: Normal nares present Mouth: Yes Normal oral and palatal mucosa present Eyes: Periorbital: periorbital findings normal Sclera: sclerae normal EOM: EOMs intact bilaterally Neck: Neck: normal visual inspection, no lymphadenopathy and trachea midline Chest: Chest palpation & inspection: normal inspection of the chest Resp: Effort & Inspection: normal respiratory effort Auscultation: clear to auscultation bilaterally Cardio: Jugular venous distension: no JVD Rate: regular rate Rhythm: regular rhythm Heart sounds: S1 normal heart sound present and S2 normal heart sound present Peripheral pulses: Peripheral pulses 2+ throughout GI: Inspection: normal to inspection GI Palp: Yes Soft to palpation, No Tenderness to palpation present (GI), No Guarding due to palpation present (GI) and No Rebound tenderness present Percussion: Yes normal to percussion Auscultation: normal bowel sounds : General: Yes no CVA tenderness Back/Spine/Pelvis: Back: no CVA tenderness Neuro: General: patient oriented x3, no focal motor deficits and CN's II-XI intact bilaterally Cognition (Neuro): normal cognition Speech: normal speech Motor exam (neuro): 5/5 motor strength present throughout Extrem: General: capillary refill normal and no clubbing, cyanosis or edema Assessment and Plan Assessment and plan (1) Screening for colon cancer: Code(s): Z12.11 - Encounter for screening for malignant neoplasm of colon Status: Acute Assessment and Plan: I have recommended colonoscopy. I have discussed the procedure, risks, benefits, and alternatives. Questions were answered. Patient is agreeable to proceed.
--- NOTE | 2025-06-17 14:34 | S_PTH ---
PATIENT: Edi Baldwin LOC: [facility]#:[id number] AGE/SX: 65/M ROOM: RE06/17/[address]: Farhat Cuba DO : 1960 BED: DIS: 06/17/2025 SPEC #: [id number] RECD: 06/18/25 08:00 STATUS: DEANNA REQ #: [id number] MODE: 06/17/25 14:[address]: Farhat Cuba DEPT: [facility] Surgical RECD BY: Toña Tran ENTERED: 06/18/25 08:00 SP TYPE: Surgical OTHR DR: Flaquita Harris DO Tissues: A - Colon Polypectomy Procedures: Hematoxylin and Eosin Stain Gross and Microscopic Level 4
[2025-06-17 14:47] VITALS: BP 87/61; PULSE 66; RESP 17; O2SAT 95
[2025-06-17 14:57] VITALS: BP 94/61; PULSE 64; RESP 16; O2SAT 96
[2025-06-17 15:07] VITALS: BP 101/68; PULSE 68; RESP 17; O2SAT 95
== END 2025-06-17 15:13 | disposition home or self-care (01) ==
PROVIDERS: PCP Family Medicine; Visit Provider Surgery
PROC: 0DJD8ZZ Inspection of Lower Intestinal Tract, Via Natural or Artificial Opening Endoscopic (ICD-10-PCS; CPT 45378; principal; 2025-06-17 14:00)
DX: Z12.11 Encounter for screening for malignant neoplasm of colon (principal); D12.3 Benign neoplasm of transverse colon; K57.30 Diverticulosis of large intestine without perforation or abscess without bleeding; E66.9 Obesity, unspecified; Z68.30 Body mass index [BMI] 30.0-30.9, adult
CPT/HCPCS: 45385; 88305; J2003; J2704; J7120

== ENCOUNTER 2025-07-10 12:44 | Emergency (ER) | payer OTHER, MEDICARE, SELFPAY ==
[2025-07-10 12:54] VITALS: BP 127/81; PULSE 70; RESP 16; TEMP 36.4; O2SAT 97
--- NOTE | 2025-07-10 13:11 | ED.EAR ---
HPI - Ear Problem General Chief complaint: Ear Stated complaint: FB R EAR Time Seen by Provider: 07/10/25 12:55 Source: patient Mode of arrival: ambulatory Limitations: no limitations History of Present Illness HPI Narrative: Edi is a 65-year-old male patient presenting to the clinic today with complaints of piece of his hearing aid stuck in his right ear canal. He reports he was sitting down for lunch and his hearing aid dome got stuck in his ear. Denies any pain. Related Data Home Medications ?Medication ?Instructions ?Recorded ?Confirmed ?Last Taken ?Type multivitamin 1 tablet PO DAILY 12/30/21 06/17/25 06/16/25 History cholecalciferol (vitamin D3) 10 10 mcg PO DAILY 12/22/22 06/17/25 06/16/25 History mcg (400 unit) capsule acetaminophen 500 mg tablet 500 mg PO Q6H PRN fever or pain 02/25/25 06/06/25 Unknown History calcium 500 mg (as 1 tablet PO DAILY 02/25/25 06/17/25 06/16/25 History carbonate)-vitamin D3 10 mcg (400 unit) tablet (Calcium 500 With D) Allergies Allergy/AdvReac Type Severity Reaction Status Date / Time hydrocodone AdvReac Intermediate Back Pain Verified 07/10/25 13:00 Review of Systems Review of Systems: Pertinent positives per HPI. Patient denies any fever, chills, rash, headache, visual changes, dizziness, cough, runny nose, sore throat, shortness of breath, chest pain, palpitations, nausea, vomiting, diarrhea, constipation, abdominal pain, or any urinary issues. [facility] Past Medical History Medical History KAMI (obstructive sleep apnea) Hypertension Hyperlipemia Arthritis SOB (shortness of breath) Rhinitis Asthma Surgical History Surgical History History of left knee replacement History of arthroscopy of knee Family History Family History Mother Family history of diabetes mellitus in first degree relative Diabetes mellitus Father Hypertension Diabetes mellitus Sibling Diabetes mellitus Hypertension Cerebrovascular accident Grandparent Diabetes mellitus Social History Social History (Reviewed 07/10/25 @ 13:13 by ANDRADE Delgado Smoking status: Never smoker Second hand tobacco smoke exposure: No Alcohol intake: current Drinks per week: 4 Alcohol use details: beer socially- rare Substance use: never Substance use type: does not use Living arrangements: with family Occupation/Education: retired Gender identity (if verbalized by the patient): Male Spiritual care concerns: No Comments At the time of my signature, I reviewed and agree with the nursing past medical, surgical, social, and family history. There is no relevant family history pertinent to the patient complaint. Exam Narrative: General: Well-developed, well nourished, in no apparent distress Head: Normocephalic, atraumatic Eyes: Pupils equally round and reactive to light bilaterally, EOM intact, sclera and conjunctive clear, no discharge, lids normal Ears: Silicone dome from hearing aid in the right ear canal, removed using alligator forceps. TMs intact and clear, ear canals clear, no drainage, grossly hearing normal. Nose: Nares patent, no discharge, no inflammation, no sinus tenderness. Mouth: Oropharynx without lesions or masses, good dentition, MMM. Neck: Supple, trachea midline, no enlargement of anterior or posterior cervical nodes, no thyroid masses or goiter palpable. Cardio: Regular rate and rhythm, s1 and s2 normal, no murmur appreciated. Resp: Clear to auscultation bilaterally anteriorly and posteriorly, no rhonchi, rales, wheezing or rubs Course Course Level of Care: Express Care Visit Vital Signs Vital signs: Vital Signs Temperature 36.4 C 07/10/25 12:54 Pulse Rate 70 07/10/25 12:54 Respiratory Rate 16 07/10/25 12:54 Blood Pressure 127/81 07/10/25 12:54 Pulse Oximetry 97 07/10/25 12:54 Temperature 36.4 C 07/10/25 12:54 Pulse Rate 70 07/10/25 12:54 Respiratory Rate 16 07/10/25 12:54 Blood Pressure 127/81 07/10/25 12:54 Pulse Oximetry 97 07/10/25 12:54 Procedures FB Removal Ear Foreign Body #1: Foreign Body Removal Date: 07/10/25 Foreign Body Removal Time: 13:18 Location: ear canal (R) Foreign Body Suspected: other plastic TM intact pre-procedure: yes Foreign Body Removed: yes Foreign Body Removal Technique: instrumentation Tympanic Membrane Intact Post Procedure: Yes Patient Tolerated Procedure: well and no complications Complications: none MDM MDM Narrative Medical decision making narrative: At the time of visit patient is resting comfortably on the exam table. Patient appears to be nontoxic. Complaints of piece of his hearing aid stuck in his right ear canal. He reports he was sitting down for lunch and his hearing aid dome got stuck in his ear. Denies any pain. On exam patient has silicone dome from hearing aid in the right ear canal, removed using alligator forceps. Plan: Hearing aid rubber dome removed from the right ear canal successfully in the clinic today. No sign of infection or trauma. Supportive measures were discussed with the patient and they voiced understanding discharge instructions and agrees to treatment plan. Return precautions reviewed. Differential Diagnosis Differential Diagnosis: Foreign body in right ear, otitis media, otitis externa, eustachian tube dysfunction, cerumen impaction, upper respiratory infection Discharge Plan Discharge Clinical Impression: Acute foreign body of right ear canal Qualifiers: Encounter type: initial encounter Qualified Code(s): T16.1XXA - Foreign body in right ear, initial encounter Patient Disposition: Home Condition: Stable Instructions: Antibiotic Form, Ear Foreign Body (ED) Additional Instructions: Foreign body was removed in the clinic today using a alligator forceps No evidence of trauma or infection after removal of the foreign body. Follow-up with your primary care doctor as needed Patient Language: Yakut Prescriptions: No Action multivitamin Tablet 1 tablet PO DAILY albuterol sulfate [Ventolin HFA] 90 mcg/actuation HFA aerosol inhaler 1 - 2 puff INHALATION Q4-6H PRN (Reason: shortness of breath or wheezing) Qty: 8.5 1RF cholecalciferol (vitamin D3) 10 mcg (400 unit) capsule 10 mcg PO DAILY calcium carbonate-vitamin D3 [Calcium 500 With D] 500 mg-10 mcg (400 unit) tablet 1 tablet PO DAILY acetaminophen 500 mg tablet 500 mg PO Q6H PRN (Reason: fever or pain) atorvastatin 10 mg tablet 10 mg PO DAILY Qty: 90 2RF amlodipine 5 mg tablet 5 mg PO DAILY Qty: 90 0RF fluticasone propion-salmeterol [Wixela Inhub] 100-50 mcg/dose blister with device See Rx Instructions .ROUTE .COMPLEX Qty: 60 11RF Dose Instruction: INHALE 1 PUFF BY MOUTH DAILY FOR 60 DAYS. RINSE AND SPIT AFTER USE. Rx Instructions: INHALE 1 PUFF BY MOUTH DAILY FOR 60 DAYS. RINSE AND SPIT AFTER USE. Follow-up/Referrals: Flaquita Harris DO [Primary Care Provider, [facility]] Time of Disposition: 12:59 Quality NIHSS Nursing Documentation ED NIHSS nursing documentation: reviewed/agree
== END 2025-07-10 13:05 | disposition home or self-care (01) ==
PROVIDERS: Emergency Provider Nurse Practitioner Family; PCP Family Medicine
DX: T16.1XXA Foreign body in right ear, initial encounter (principal); E78.5 Hyperlipidemia, unspecified; I10 Essential (primary) hypertension; W44.G1XA Audio device entering into or through a natural orifice, initial encounter
CPT/HCPCS: 69200; 99212; G0463